=== PATIENT | female | born 1970 | race Hispanic/Latino ===

== ENCOUNTER → 2018-03-07 | Outpatient (CLI) | payer MEDICAID ==
[~2018-03-07] MED LIST: REGADENOSON 0.4 MG/5 ML PF SYG IVP SCH
== END | disposition home or self-care (01) ==
LOC: SHCH 08:56
PROVIDERS: ATTEND Internal Medicine Cardiovascular Disease
DX: I25.10 Atherosclerotic heart disease of native coronary artery without angina pectoris (principal)
CPT/HCPCS: 78452; 93017; 96374; A9500 ×2; J2785

== ENCOUNTER 2023-10-29 21:29 | Emergency (ER) | payer MEDICAID, OTHER ==
[~2023-10-29] VITALS: Ht 167.6 cm; Wt 111.6 kg
[2023-10-29 22:05] LABS: SARS-CoV-2, RNA, NAAT POSITIVE SARS CoV-2 (NEGATIVE)
[2023-10-29 22:08] LABS: INFLUENZA TYPE A Negative For Type A (NEGATIVE); INFLUENZA TYPE B Negative For Type B (NEGATIVE)
[2023-10-29 22:28] LABS: BASOPHILS # (AUTO) 0.05 K/uL (0.00-0.20); BASOPHILS % (AUTO) 0.5 % (0.0-5.0); EOSINOPHILS # (AUTO) 0.14 K/uL (0.00-0.70); EOSINOPHILS % (AUTO) 1.4 % (0.0-8.0); HEMATOCRIT 36.6 % (36-48); IMMATURE GRANULOCYTE ABSOLUTE 0.07 K/uL (0-1); LYMPHOCYTES # (AUTO) 1.8 K/uL (1.0-4.8); LYMPHOCYTES % (AUTO) 18.8 % (21.0-51.0); MEAN CORPUSCULAR HEMOGLOBIN 27.3 pg (27.0-33.0); MEAN CORPUSCULAR HGB CONC 33.9 g/dL (32.0-36.0); MEAN CORPUSCULAR VOLUME 80.4 fL (79-99); MONOCYTES # (AUTO) 0.7 K/uL (0.1-1.0); MONOCYTES % (AUTO) 6.7 % (3.0-13.0); NEUTROPHILS % (AUTO) 71.9 % (40.0-77.0); PLATELET COUNT (AUTO) 282 K/uL (130-400); RED BLOOD CELL COUNT(AUTO) 4.55 MIL/uL (4.00-5.50); RED CELL DISTRIBUTION WIDTH 12.7 % (11.0-15.5); WHITE BLOOD COUNT (AUTO) 9.8 K/uL (4.8-10.8)
[2023-10-29] MEDS ORDERED: LABETALOL 20MG VIAL IV ONE (22:30)
[2023-10-29 22:50] LABS: ALBUMIN 2.4 g/dL (3.5-5.0); BILIRUBIN,TOTAL 0.3 mg/dL (0.2-1.0); CREATININE 1.1 mg/dL (0.5-1.5); POTASSIUM 4.5 mmol/L (3.5-5.1); TOTAL PROTEIN, SERUM 7.5 g/dL (6.0-8.3)
[2023-10-29] MEDS ORDERED: INSULIN HUMULIN R 100 UNIT/ML 3ML IV ONE (23:00)
[2023-10-29] MEDS ORDERED: 0.9%NACL 1000ML 1,000 ML IV ONE (23:00)
[2023-10-29 23:51] VITALS: PULSE 100
[2023-10-30 00:21] LABS: APPEARANCE,URINE CLEAR (CLEAR); BILIRUBIN,URINE NEGATIVE (NEGATIVE); COLOR,URINE LIGHT-YELLOW (YELLOW); GLUCOSE, URINE (UA) >=1000 mg/dL (NEGATIVE); KETONES,URINE NEGATIVE (NEGATIVE); LEUKOCYTE ESTERASE ,URINE NEGATIVE Leu/uL (NEGATIVE); NITRATE,URINE NEGATIVE (NEGATIVE); OCCULT BLOOD,URINE SMALL (NEGATIVE); PROTEIN,URINE 200 mg/dL (NEGATIVE); UROBILINOGEN,URINE 0.2 mg/dL (0.2-1.0)
[2023-10-30 00:23] LABS: ADD UA MICROSCOPIC YES
[2023-10-30] MEDS ORDERED: ACETAMINOPHEN 500 MG TABLET PO ONE (00:30)
[2023-10-30 00:40] LABS: BACTERIA,URINE None Seen /HPF (None Seen)
[2023-10-30 00:41] LABS: MUCUS,URINE Rare LPF (None Seen); SQUAMOUS EPITHELIAL CELL,UR Rare /HPF (0-2)
[2023-10-30 01:33] VITALS: BP 172/82; PULSE 98; RESP 20; O2SAT 94
== END 2023-10-30 02:09 | disposition home or self-care (01) ==
LOC: EDH 21:29
DX: U07.1 COVID-19 (principal); E11.65 Type 2 diabetes mellitus with hyperglycemia; I10 Essential (primary) hypertension; E66.01 Morbid (severe) obesity due to excess calories; Z68.39 Body mass index [BMI] 39.0-39.9, adult; Z98.890 Other specified postprocedural states
CPT/HCPCS: 99285; 96374; 70450; 71045; 87635; 96361; 96375; 82550; 84484; 80053; 83880; 85025; 87040 ×2; 87088; 87804 ×2; 82948; 83605; 81001; 36415; 93005; J1815; C9803; J7030; J3490